=== PATIENT | female | born 1990 | race Caucasian/White ===

== ENCOUNTER 2017-04-23 23:40 | Emergency (ER) | payer MEDICAID ==
[~2017-04-23] VITALS: Ht 152.4 cm; Wt 52.2 kg
[2017-04-24] MEDS ORDERED: LORAZEPAM 2MG/ML CPJ IV STA (00:14)
[2017-04-24] MEDS ORDERED: SODIUM CHLORIDE 0.9% 1,000 ML IV ONE (00:14)
[2017-04-24] MEDS ORDERED: DIPHENHYDRAMINE 50MG/ML VIAL IV ONE (00:15)
[2017-04-24 00:31] LABS: BASOPHILS % 0.3 % (0.0-2.0); HEMATOCRIT. 36.4 % (36.0-48.0); HEMOGLOBIN. 13.1 g/dL (12.0-16.0); LYMPHOCYTES % 44.5 % (20.0-50.0); MEAN CORPUSCULAR VOLUME 105.3 fL (81.0-99.0); MEAN PLATELET VOLUME 8.4 fl (7.4-10.4); MONOCYTES % 6.5 % (2.0-8.0); NEUTROPHILS % 47.7 % (40.0-76.0); PLATELET 131 x1000/uL (130-400); RED BLOOD CELL COUNT 3.45 mill/uL (4.2-5.4); RED CELL DISTRIBUTION WIDTH 13.4 % (11.6-14.6)
[2017-04-24 00:38] LABS: CHLORIDE 104 mEq/L (98-107)
[2017-04-24 00:47] LABS: CARBON DIOXIDE 26 mEq/L (21-32); ETHANOL BLOOD 91 mg/dL
[2017-04-24 01:06] LABS: CLARITY URINE TURBID (CLEAR); COLOR URINE ORANGE (YELLOW); GLUCOSE URINE NEGATIVE (NEGATIVE); KETONES URINE NEGATIVE (NEGATIVE); LEUKOCYTE ESTERASE URINE 1+ (NEGATIVE); NITRITE URINE NEGATIVE (NEGATIVE); OCCULT BLOOD URINE 3+ (NEGATIVE); PROTEIN URINE 2+ (NEGATIVE); SPECIFIC GRAVITY URINE 1.026 (1.005-1.030)
[2017-04-24 01:43] LABS: *BARBITURATES SCREEN URINE NEGATIVE (NEGATIVE); *BENZODIAZEPINES SCREEN URINE NEGATIVE (NEGATIVE); *COCAINE SCREEN URINE NEGATIVE (NEGATIVE); CANNABINOID URINE SCREEN NEGATIVE (NEGATIVE); METHADONE URINE SCREEN NEGATIVE (NEGATIVE); OPIATES URINE SCREEN NEGATIVE (NEGATIVE); PHENCYCLIDINE URINE SCREEN NEGATIVE (NEGATIVE)
[2017-04-24 02:11] LABS: *AMPHETAMINES SCREEN URINE PRESUMTIVE POSITIVE (NEGATIVE)
[2017-04-24 09:35] VITALS: BP 112/73
== END 2017-04-24 10:32 | disposition home or self-care (01) ==
LOC: ER 23:40
DX: F29 Unspecified psychosis not due to a substance or known physiological condition (principal)
CPT/HCPCS: 36415; 80053; 80305; 80307; 80329; 81001; 81025; 85025; 96361; 96374; 96375; 99284; G0482; J1200; J2060; J7030

== ENCOUNTER 2017-08-19 23:20 | Emergency (ER) | payer MEDICAID ==
[~2017-08-19] VITALS: Ht 157.5 cm; Wt 45.0 kg
[2017-08-19 23:49] VITALS: BP 118/80
== END 2017-08-20 00:46 | disposition left against medical advice (07) ==
LOC: ER 23:20
DX: R10.9 Unspecified abdominal pain (principal); Z53.21 Procedure and treatment not carried out due to patient leaving prior to being seen by health care provider

== ENCOUNTER 2017-08-20 01:27 | Emergency (ER) | payer MEDICAID ==
[~2017-08-20] VITALS: Ht 157.5 cm; Wt 45.0 kg
[2017-08-20 02:45] VITALS: BP 145/89
== END 2017-08-20 03:15 | disposition left against medical advice (07) ==
LOC: ER 01:27
DX: R10.9 Unspecified abdominal pain (principal); Z53.21 Procedure and treatment not carried out due to patient leaving prior to being seen by health care provider

== ENCOUNTER 2017-08-20 05:52 | Emergency (ER) | payer MEDICAID | END 2017-08-20 06:56 | disposition left against medical advice (07) | LOC: ER 05:52 | DX: R10.9 Unspecified abdominal pain (principal); Z53.21 Procedure and treatment not carried out due to patient leaving prior to being seen by health care provider ==